=== PATIENT | female | born 1945 | race Caucasian/White ===

== ENCOUNTER 2019-01-20 09:18 | Day surgery (SDC) | payer MEDICARE, OTHER ==
[~2019-01-20 09:18] MED LIST: Cefuroxime 10 MG/ML SYRINGE EYELF SCH; Lidocaine 1% PF 2 ML SDV INJECT SCH; Pilocarpine 4% Ophth Soln 15 ML Bot EYELF SCH
[2019-01-20] MEDS: Polymyxin B/Trimethoprim 10 ML Bottle EYELF SCH ×3 (10:07→11:29)
[2019-01-20] MEDS: Brimonidine 0.2% Ophth Soln 5 ML Bottle EYELF SCH ×3 (10:12→11:29)
[2019-01-20] MEDS: Phenylephrine 2.5% Ophth Soln 2 ML Bot EYELF SCH ×5 (10:17→11:10)
[2019-01-20] MEDS: Tropicamide 1% Ophth Soln 15 ML Bottle EYELF SCH ×4 (10:22→10:56)
--- NOTE | 2019-01-20 10:27 | PCM.PREANE ---
Preanesthetic Assessment - Procedure Proposed Procedure: right eye cataract extraction - Anesthesia/Transfusion/Family Hx Anesthesia History: No Prior Anesthesia Family History of Anesthesia Reaction: No Transfusion History: No Prior Transfusion(s) Intubation History: Unknown - Review of Systems General: No Symptoms Pulmonary: No Symptoms Cardiovascular: No Symptoms Gastrointestinal: No Symptoms Neurological: No Symptoms Other: Reports: None - Physical Assessment NPO Status Date: 01/19/19 NPO Status Time: 23:00 Vital Signs: Last Vital Signs Temp 36.5 C 01/20/19 09:57 Pulse 57 L 01/20/19 09:57 Resp 16 01/20/19 09:57 BP 154/67 H 01/20/19 09:57 Pulse Ox 99 01/20/19 09:57 Height: 1.57 m Weight: 79.379 kg ASA Class: 2 Mental Status: Alert & Oriented x3 Airway Class: Mallampati = 2 Dentition: Reports: Normal Dentition ROM/Head Extension: Full Lungs: Clear to Auscultation, Normal Respiratory Effort Cardiovascular: Regular Rate, Regular Rhythm - Allergies Allergies/Adverse Reactions: Allergies Allergy/AdvReac Type Severity Reaction Status Date / Time No Known Allergies Allergy Verified 01/19/19 10:33 - Blood Blood Available: No - Anesthesia Plan Pre-Op Medication Ordered: None - Acknowledgements Anesthesia Type Planned: MAC Pt an Appropriate Candidate for the Planned Anesthesia: Yes Alternatives and Risks of Anesthesia Discussed w Pt/Guardian: Yes Pt/Guardian Understands and Agrees with Anesthesia Plan: Yes PreAnesthesia Questionnaire - HOME MEDS Home Medications: Home Meds Aspirin [Halfprin] 81 mg PO DAILY 01/19/19 [History] Cholecalciferol (Vitamin D3) [Vitamin D3] 5,000 unit PO DAILY 01/19/19 [History] Lisinopril 20 mg PO DAILY 01/19/19 [History] Mv-Mn/Folic Acid/Calcium/Vit K [Women's 50 Plus Multivit Tab] 1 tab PO DAILY [History] - CURRENT (IN HOUSE) MEDS Current Meds: Current Medications Brimonidine Tartrate (Alphagan 0.2% Ophth Soln) 0 ml EYELF ASDIRECTED FLY Stop: 01/20/19 18:00 Last Admin: 01/20/19 10:12 Dose: 1 drop Cefuroxime Sodium (Zinacef) 0 mg EYELF ASDIRECTED FLY Stop: 01/20/19 18:00 Lidocaine HCl (Xylocaine-Mpf 1%) 0 ml INJECT ASDIRECTED FLY Stop: 01/20/19 18:00 Phenylephrine HCl (Ramy-Synephrine 2.5% Ophth Soln) 0 ml EYELF ASDIRECTED FLY Stop: 01/20/19 18:00 Last Admin: 01/20/19 10:17 Dose: 1 drop Pilocarpine HCl (Pilocar 4% Ophth Soln) 0 ml EYELF ASDIRECTED FLY Stop: 01/20/19 18:00 Polymyxin/Trimethoprim Sulfate (Polytrim Ophth Soln) 0 ml EYELF ASDIRECTED FLY Stop: 01/20/19 18:00 Last Admin: 01/20/19 10:07 Dose: 1 drop Tetracaine HCl (Tetracaine 0.5% Steri-Unit [place]) 0 ml EYELF ASDIRECTED FLY Stop: 01/20/19 18:00 Tropicamide (Mydriacyl 1% Oph Soln) 0 ml EYELF ASDIRECTED FLY Stop: 01/20/19 18:00
[2019-01-20] MEDS: Tetracaine HCl/PF 0.5% 4 ML Bottle EYELF SCH ×2 (11:01→11:22)
--- NOTE | 2019-01-20 11:39 | PCM48HPAN ---
Post Anesthesia Note - EVALUATION WITHIN 48HRS OF ANESTHETIC Vital Signs in Normal Range: Yes Patient Participated in Evaluation: Yes Respiratory Function Stable: Yes Airway Patent: Yes Cardiovascular Function Stable: Yes Hydration Status Stable: Yes Pain Control Satisfactory: Yes Nausea and Vomiting Control Satisfactory: Yes Mental Status Recovered: Yes Vital Signs: Last Vital Signs Temp 97.7 F 01/20/19 09:57 Pulse 57 L 01/20/19 09:57 Resp 16 01/20/19 09:57 BP 154/67 H 01/20/19 09:57 Pulse Ox 99 01/20/19 09:57
== END 2019-01-20 11:42 | disposition home or self-care (01) ==
LOC: JD.SDS 09:18
PROVIDERS: ATTEND Ophthalmology
DX: H25.813 Combined forms of age-related cataract, bilateral (principal); I10 Essential (primary) hypertension; Z87.891 Personal history of nicotine dependence; Z79.82 Long term (current) use of aspirin; Z79.899 Other long term (current) drug therapy
CPT/HCPCS: 66984; J0697; J2001; V2632

== ENCOUNTER 2019-02-24 06:50 | Day surgery (SDC) | payer MEDICARE, OTHER ==
[2019-02-24] MEDS ORDERED: Lidocaine 1% PF 2 ML SDV INJECT SCH (07:00)
[2019-02-24] MEDS ORDERED: Pilocarpine 4% Ophth Soln 15 ML Bot EYELF SCH (07:00)
[2019-02-24] MEDS ORDERED: Cefuroxime 10 MG/ML SYRINGE EYELF SCH (07:00)
[2019-02-24] MEDS: Polymyxin B/Trimethoprim 10 ML Bottle EYELF SCH ×3 (07:11→08:38)
[2019-02-24] MEDS: Brimonidine 0.2% Ophth Soln 5 ML Bottle EYELF SCH ×3 (07:15→08:38)
[2019-02-24] MEDS: Phenylephrine 2.5% Ophth Soln 2 ML Bot EYELF SCH ×5 (07:19→08:16)
[2019-02-24] MEDS: Tropicamide 1% Ophth Soln 15 ML Bottle EYELF SCH ×4 (07:23→08:01)
--- NOTE | 2019-02-24 07:29 | PCM.PREANE ---
Preanesthetic Assessment - Procedure Proposed Procedure: left cataract - Anesthesia/Transfusion/Family Hx Anesthesia History: Prior Anesthesia Without Reaction Family History of Anesthesia Reaction: No Transfusion History: No Prior Transfusion(s) Intubation History: Unknown - Review of Systems General: No Symptoms Pulmonary: No Symptoms Cardiovascular: No Symptoms Gastrointestinal: No Symptoms Neurological: No Symptoms Other: Reports: None - Physical Assessment NPO Status Date: 02/23/19 NPO Status Time: 19:00 Vital Signs: Last Vital Signs Temp 97.5 F 02/24/19 07:00 Pulse 54 L 02/24/19 07:00 Resp 16 02/24/19 07:00 BP 133/70 02/24/19 07:00 Pulse Ox 96 02/24/19 07:00 Weight: 80.739 kg ASA Class: 2 Mental Status: Alert & Oriented x3 Airway Class: Mallampati = 2 Dentition: Reports: Normal Dentition Thyro-Mental Finger Breadths: 3 Mouth Opening Finger Breadths: 3 ROM/Head Extension: Full Lungs: Clear to Auscultation, Normal Respiratory Effort Cardiovascular: Regular Rate, Regular Rhythm - Allergies Allergies/Adverse Reactions: Allergies Allergy/AdvReac Type Severity Reaction Status Date / Time No Known Allergies Allergy Verified 02/19/19 10:23 - Blood Blood Available: No - Acknowledgements Anesthesia Type Planned: MAC Pt an Appropriate Candidate for the Planned Anesthesia: Yes Alternatives and Risks of Anesthesia Discussed w Pt/Guardian: Yes Pt/Guardian Understands and Agrees with Anesthesia Plan: Yes PreAnesthesia Questionnaire Cardiovascular History: Reports: Hypertension Respiratory History: Reports: None Gastrointestinal History: Reports: None - SUBSTANCE USE Smoking Status *Q: Former Smoker Tobacco Use Within Last Twelve Months: No Second Hand Smoke Exposure: No Days Per Week of Alcohol Use: 1 (rare) Recreational Drug Use History: No - HOME MEDS Home Medications: Home Meds Aspirin [Halfprin] 81 mg PO DAILY 01/19/19 [History] Cholecalciferol (Vitamin D3) [Vitamin D3] 5,000 unit PO DAILY 01/19/19 [History] Lisinopril 20 mg PO DAILY 01/19/19 [History] Mv-Mn/Folic Acid/Calcium/Vit K [Women's 50 Plus Multivit Tab] 1 tab PO DAILY [History] - CURRENT (IN HOUSE) MEDS Current Meds: Current Medications Brimonidine Tartrate (Alphagan 0.2% Ophth Soln) 0 ml EYELF ASDIRECTED FLY Stop: 02/24/19 18:00 Last Admin: 02/24/19 07:15 Dose: 1 drop Cefuroxime Sodium (Zinacef) 0 mg EYELF ASDIRECTED FLY Stop: 02/24/19 18:00 Lidocaine HCl (Xylocaine-Mpf 1%) 1 ml INJECT ASDIRECTED FLY Stop: 02/24/19 18:00 Phenylephrine HCl (Ramy-Synephrine 2.5% Ophth Soln) 0 ml EYELF ASDIRECTED FLY Stop: 02/24/19 18:00 Last Admin: 02/24/19 07:19 Dose: 1 drop Pilocarpine HCl (Pilocar 4% Ophth Soln) 0 ml EYELF ASDIRECTED FLY Stop: 02/24/19 18:00 Polymyxin/Trimethoprim Sulfate (Polytrim Ophth Soln) 0 ml EYELF ASDIRECTED FLY Stop: 02/24/19 18:00 Last Admin: 02/24/19 07:11 Dose: 1 drop Tetracaine HCl (Tetracaine 0.5% Steri-Unit [place]) 0 ml EYELF ASDIRECTED FLY Stop: 02/24/19 18:00 Tropicamide (Mydriacyl 1% Ophth Soln) 0 ml EYELF ASDIRECTED FLY Stop: 02/24/19 18:00 Last Admin: 02/24/19 07:23 Dose: 1 drop
[2019-02-24] MEDS: Tetracaine HCl/PF 0.5% 4 ML Bottle EYELF SCH ×2 (08:05→08:25)
--- NOTE | 2019-02-24 08:41 | PCM48HPAN ---
Post Anesthesia Note - EVALUATION WITHIN 48HRS OF ANESTHETIC Vital Signs in Normal Range: Yes Patient Participated in Evaluation: Yes Respiratory Function Stable: Yes Airway Patent: Yes Cardiovascular Function Stable: Yes Hydration Status Stable: Yes Pain Control Satisfactory: Yes Nausea and Vomiting Control Satisfactory: Yes Mental Status Recovered: Yes Vital Signs: Last Vital Signs Temp 97.5 F 02/24/19 07:00 Pulse 54 L 02/24/19 07:00 Resp 16 02/24/19 07:00 BP 133/70 02/24/19 07:00 Pulse Ox 96 02/24/19 07:00 170/64 53 14 97%
== END 2019-02-24 08:50 | disposition home or self-care (01) ==
LOC: JD.SDS 06:50
PROVIDERS: ATTEND Ophthalmology
DX: H25.812 Combined forms of age-related cataract, left eye (principal); H40.051 Ocular hypertension, right eye; H40.1124 Primary open-angle glaucoma, left eye, indeterminate stage; I10 Essential (primary) hypertension; Z87.891 Personal history of nicotine dependence
CPT/HCPCS: 66984; J0697; J2001; V2632

== ENCOUNTER 2019-12-14 20:14 | Emergency (ER) | payer OTHER, MEDICARE ==
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
[2019-12-14] MEDS: Sodium Chloride 0.9% 10 ML Syringe FLUSH PRN ×2 (20:53→21:16)
[2019-12-14] MEDS ORDERED: Iopamidol 755 Mg/ML 100 ML Bottle IVPUSH ONE (21:15)
--- NOTE | 2019-12-15 08:36 | CT ---
CT chest Technique: Multiple axial sections through the chest were obtained. Intravenous contrast was utilized. Reconstructed sagittal and coronal images were obtained. Comparison: No prior chest imaging is available. Findings: Mediastinum shows no hematoma. Aorta shows atherosclerotic calcification without aneurysm. Mild coronary artery calcification is seen. No pericardial thickening is seen. Slight atelectasis is noted within both lung bases. No acute pulmonary contusion is seen. No pleural effusion or pneumothorax is seen. Bone window settings were reviewed. Scattered degenerative change within the spine is seen. No compression deformities are seen within the thoracic spine. Reconstructed images of the sternum shows no discrete abnormality. No discrete rib fracture is appreciated. Impression: 1. Findings believed to be incidental as noted above. 2. Nothing acute is appreciated on CT study of the chest. Diagnostic code #2 I agree with preliminary report issued by [employer] ([facility] preliminary report dictated on 12/14/19, 10:20 PM Central Daylight Time) Study was dictated in MDT CT abdomen and pelvis Technique: Multiple axial sections were obtained from above the dome of the diaphragm inferiorly through the pubic symphysis. Intravenous contrast was utilized. No oral contrast has been given. Delayed images were also obtained through the abdomen and pelvis. Reconstructed coronal and sagittal images were obtained. Comparison: No prior abdominal imaging is available. Findings: Low-density lesion having Hounsfield unit measurements of the cyst are noted within the right lobe measuring 1.3 cm. No additional abnormality is appreciated within the liver. Spleen appears within normal limits. Adrenal glands show no nodule. Kidneys show symmetric contrast enhancement parapelvic cysts are noted within the left kidney. Delayed images shows contrast excretion into both ureters without obstruction. Pancreas appears atrophied. Small hiatal hernia is noted. Aorta shows atherosclerotic calcification without aneurysm. No retroperitoneal adenopathy is seen. Low density abnormality noted within the inferior left rectus muscle believed to represent an old rectus muscle hematoma. Scarring noted within the anterior abdominal wall. Right lower anterior abdominal wall hernia seen containing nondilated loops of colon and small bowel. Prior bowel surgery is noted within the right lower abdomen. Appendix not visualized with certainty. Diverticuli seen within the sigmoid colon. No free fluid or inflammatory change is appreciated. Bone window settings shows scattered degenerative change within the spine. Nothing acute is appreciated within the visualized osseous structures. Impression: 1. Right lower anterior abdominal wall hernia containing nondilated small bowel and colon. 2. Old left lower rectus muscle hematoma. 3. Other findings as noted above which are nonacute. Diagnostic code #3 Agree with preliminary report issued by [facility] ([facility] preliminary report dictated on 12/14/19, 10:22 PM Central Daylight Time) Study was dictated in MDT
== END 2019-12-14 21:45 | disposition home or self-care (01) ==
LOC: JD.ED 20:14
DX: S30.1XXA Contusion of abdominal wall, initial encounter (principal); I10 Essential (primary) hypertension; M19.90 Unspecified osteoarthritis, unspecified site; E66.9 Obesity, unspecified; Z68.32 Body mass index [BMI] 32.0-32.9, adult; Z98.890 Other specified postprocedural states; Z79.82 Long term (current) use of aspirin; Z79.899 Other long term (current) drug therapy; V53.6XXA Passenger in pick-up truck or van injured in collision with car, pick-up truck or van in traffic accident, initial encounter
CPT/HCPCS: 36415; 71260; 74177; 85025; 99284; Q9967; 99283